=== PATIENT | male | born 1965 | race Caucasian/White ===

== ENCOUNTER → 2019-04-05 | Outpatient (REF) | payer OTHER ==
[2019-04-05 18:00] LABS: APPEARANCE, URINE CLEAR (CLEAR); BACTERIA, URINE AUTO NEGATIVE (NEGATIVE); BILIRUBIN, URINE AUTO NEGATIVE (NEGATIVE); BLOOD, URINE BLOOD NEGATIVE (NEGATIVE); COLOR, URINE YELLOW (YELLOW); GLUCOSE, URINE (UA) AUTO NEGATIVE (NEGATIVE); KETONE, URINE AUTO NEGATIVE (NEGATIVE); LEUKOCYTE ESTERASE, URINE AUTO NEGATIVE (NEGATIVE); MUCUS, URINE SMALL (NEGATIVE); NITRITE, URINE AUTO NEGATIVE (NEGATIVE); PROTEIN, URINE AUTO NEGATIVE (NEGATIVE); RBC, URINE AUTO 3 /HPF (0-3); SPECIFIC GRAVITY URINE AUTO 1.018 (1.002-1.035); SQUAMOUS EPITHELIAL CELL UR AU 0 /HPF (0-6); UROBILINOGEN, URINE AUTO 0.2 mg/dL (0.0-2.0); WBC, URINE AUTO 8 /HPF (0-3)
== END ==
LOC: M SMT 17:11
PROVIDERS: ATTEND Nurse Practitioner Women's Health
DX: R31.29 Other microscopic hematuria (principal)
CPT/HCPCS: 81001; 87086; 88108; G0463

== ENCOUNTER 2019-05-17 07:05 | Day surgery (SDC) | payer OTHER ==
[~2019-05-17] VITALS: Ht 175.3 cm; Wt 122.5 kg
[~2019-05-17 07:05] MED LIST: LR 1,000 ML IV ONE; ceFAZolin SOD 1 GM in D5W MINI-BAG PLUS 50 ML IV ONE; ceFAZolin SOD 2 GM in IV 1 EA IV ONE
--- NOTE | 2019-05-17 07:35 | REP ---
Clinical: Nephrolithiasis. Technique: Two supine views of the abdomen and pelvis. Findings: A 5 mm calculus in the region of the right renal pelvis cannot be excluded. No prior examinations are available for comparison. Calcifications within the pelvis likely represent phleboliths measuring up to approximately 2.5 mm. Bowel gas pattern is nonspecific. Skeletal structures are intact. Impression: Cannot exclude 5 mm calculus in the region of the right renal pelvis. Electronically Signed by Ben Lobato MD 05/17/2019 07:27 A
[2019-05-17] MEDS ORDERED: dexameTHASONE 4 MG/ML 1ML VIAL (J1100) As Ordered ONE (09:19)
[2019-05-17] MEDS ORDERED: propofoL 200 MG/20 ML VIAL As Ordered ONE ×2 (09:19→10:05)
[2019-05-17] MEDS ORDERED: LIDOCAINE 2% INJ 100 MG/5 ML SDV (FOR ANES.) As Ordered ONE (09:19)
[2019-05-17] MEDS ORDERED: ONDANSETRON 4MG/2ML VIAL (J2405) As Ordered ONE (09:19)
[2019-05-17] MEDS ORDERED: fentaNYL 100 MCG/2 ML INJECTION (J3010) As Ordered ONE (09:20)
[2019-05-17] MEDS ORDERED: MIDAZOLAM INJ 2 MG/2 ML VIAL (J2250) As Ordered ONE (09:20)
[2019-05-17] MEDS ORDERED: LIDOCAINE 2% 5ML JELLY UROJET As Ordered ONE (09:26)
[2019-05-17] MEDS ORDERED: PERCOCET 5MG/325MG TAB PO PRN (10:45)
[2019-05-17] MEDS ORDERED: ONDANSETRON 4MG/2ML VIAL (J2405) IV PRN (10:45)
[2019-05-17] MEDS ORDERED: LR 1,000 ML IV SCH (10:45)
[2019-05-17 11:00] VITALS: BP 126/87
--- NOTE | 2019-05-17 15:09 | RO ---
DATE OF PROCEDURE: 05/17/2019 PREOPERATIVE DIAGNOSIS: 6-7 mm nonobstructing right renal stone and persistent microscopic hematuria in a former smoker. POSTOPERATIVE DIAGNOSIS: 6-7 mm nonobstructing right renal stone and persistent microscopic hematuria in a former smoker. OPERATIVE PROCEDURE: Cystoscopy and right extracorporeal shock wave lithotripsy. SURGEON: Dr. Nafisa Brownlee [employer]: ANESTHESIA: Monitored anesthesia care (MAC) INDICATIONS FOR PROCEDURE: The patient is a 53-year-old gentleman who is a former smoker who has had microscopic hematuria. A CT scan had shown a 6-7 mm nonobstructing stone in his right kidney. He has had no prior stone disease. This was well seen on a KUB and after discussing all different options, alternatives, risks, and benefits, he decided that he wanted to proceed with extracorporeal shock wave lithotripsy (ESWL) and cystoscopy. Informed consent was obtained in both verbal and written form. PROCEDURE The patient was brought into the operating room and placed supine on the padded operating room table. Anesthesia was induced. Next, he was prepped and draped in the usual fashion. A flexible cystoscope was inserted. The urethra was noted to be open without any evidence of lesions or strictures. The prostatic urethra definitely had some friability and even some bleeding when I passed the scope. There was some mildly obstructing lateral lobes. Upon entering the bladder there was also a minimal amount of white debris, but there was no evidence of stones, erythematous patches, lesions or other significant abnormalities. At this point, the patient was repositioned and using fluoroscopy the stone was well seen. He then received a total of 2500 shock waves with a total power level of 20. He tolerated the procedure well was returned to the recovery room in stable condition.
== END 2019-05-17 11:21 | disposition home or self-care (01) ==
LOC: M SDC 07:05
PROVIDERS: ATTEND Specialist
DX: N20.0 Calculus of kidney (principal); R31.29 Other microscopic hematuria; E66.01 Morbid (severe) obesity due to excess calories; Z87.891 Personal history of nicotine dependence
CPT/HCPCS: 50590; 52000; 74018; J0690; J1100; J2250; J2405; J3010

== ENCOUNTER → 2019-06-07 | Outpatient (CLI) | payer OTHER ==
--- NOTE | 2019-06-08 03:23 | REP ---
Clinical: Kidney stone. Technique: Two supine views of the abdomen and pelvis. Findings: No obvious urinary tract calcifications are appreciated. Small calcifications in the pelvis likely represent phleboliths. Nonspecific bowel gas pattern. No organomegaly. No abnormal calcification or foreign body. Skeletal structures intact. Impression: No obvious urinary tract calcifications. Electronically Signed by Ben Lobato MD 06/08/2019 03:15 A
== END ==
LOC: M SMT 09:06
PROVIDERS: ATTEND Nurse Practitioner Family
DX: Z87.442 Personal history of urinary calculi (principal)

== ENCOUNTER → 2024-04-26 | Outpatient (REF) | LOC: M PLAIMG 12:19 | PROVIDERS: ATTEND Internal Medicine | DX: M54.50 Low back pain, unspecified (principal); M51.87 Other intervertebral disc disorders, lumbosacral region ==